=== PATIENT | male | born 1940 | race Caucasian/White ===

== ENCOUNTER 2017-10-09 15:24 | Inpatient (IN) ==
--- NOTE | 2017-10-09 16:13 | Emergency Department Note ---
Disposition Clinical Impression: Sepsis Disposition: Admitted As Inpatient Condition: Fair SOB HPI - General Chief Complaint: ED Shortness of Breath/Dyspnea Stated Complaint: shortness of breath Time Seen by Provider: 10/09/17 15:50 Source: family Mode of arrival: wheelchair Limitations: no limitations Nursing Notes Reviewed: Yes Vital Signs Reviewed: Yes - History of Present Illness Patient began shaking today feels very cold. He was recently in the hospital with a heart attack and the family is thinking he may have pneumonia. He is coughing a little bit of whitish phlegm. He denies any shortness of breath. Pt Subjective Complaint: shortness of breath Onset (ago): Just [employer] Context: recent illness Severity: moderate Consistency/Duration: intermittent Improves with: nothing Worsens with: nothing Associated symptoms: Reports: cough, sputum production (clear), nausea/vomiting (times one). Denies: chest pain, pain with inspiration, fever, wheezing Treatment prior to arrival: none Cough Description: Involuntary, Productive Cough Frequency: Intermittent Sputum production: Yes Sputum Amount: Scant Sputum Color: White - Related Data Home Medications Medication Instructions Recorded Confirmed Cholecalciferol (D-3) [Vitamin D] 2,000 unit PO HS 08/11/17 10/09/17 Famotidine [Pepcid] 20 mg PO HS 08/11/17 10/09/17 Metoprolol [Lopressor] 100 mg PO BID 08/11/17 10/09/17 Montelukast [Singulair] 10 mg PO HS 08/11/17 10/09/17 traZODone [TraZODone] 50 mg PO HS 09/28/17 10/09/17 Previous Rx's Medication Instructions Recorded Aspirin 81 mg PO DAILY #30 tab.chew 09/30/17 Atorvastatin [Lipitor] 80 mg PO HS #30 tablet 09/30/17 Losartan [Cozaar] 50 mg PO DAILY #30 tablet 09/30/17 Rivaroxaban [Xarelto] 20 mg PO 1700 #30 tablet 09/30/17 Ticagrelor [Brilinta] 90 mg PO BID #60 tablet 09/30/17 Allergies Allergy/AdvReac Type Severity Reaction Status Date / Time No Known Allergies Allergy Verified 08/11/17 07:11 All systems ED: reviewed and negative except as stated. Review of Systems: As Per HPI Constitutional: Denies: fever, chills, weakness, weight change Eyes: Denies: eye pain, eye discharge, vision change ENT ED: Denies: ear pain, throat pain, dental pain, hearing loss, epistaxis, congestion, dysphagia Cardiovascular: Denies: chest pain, palpitations, dyspnea on exertion, edema, syncope Respiratory: Reports: cough, dyspnea. Denies: wheezes, hemoptysis, stridor Gastrointestinal: Denies: abdominal pain, nausea, vomiting, diarrhea, constipation, hematemesis, melena, hematochezia Genitourinary: Denies: urgency, dysuria, frequency, hematuria Musculoskeletal: Denies: back pain, neck pain, arthralgia, myalgia Integumentary: Denies: rash, abrasion, lesions Neurological: Denies: headache, weakness, numbness, paresthesias, confusion, abnormal gait, vertigo Endocrine: Denies: fatigue Hematological/Lymphatic: Denies: easy bleeding, easy bruising Allergic/Immunologic: Denies: facial swelling, urticaria Past Medical History - Past Medical History Attestation: Yes The following information was validated with the patient. Source: patient Medical history: Reports: asthma, CHF, COPD, coronary artery disease, hyperlipidemia, hypertension, myocardial infarction, other Surgical history: Reports: angioplasty/stent, coronary bypass (CABG), LE stent(s ), LE vascular intervention, pacemaker/AICD Psychiatric history: Reports: no psych history - Social History Smoking Status: Former smoker Smokeless Tobacco Status: No Alcohol use: Reports: none Drug use: Reports: none Physical Exam - General Limitations: no limitations General appearance: alert - Head Head exam: atraumatic, normocephalic, normal inspection - Eye Eye exam: Present: normal appearance, PERRL, EOMI - ENT ENT exam: normal exam, normal oropharynx, mucous membranes moist - Neck Neck exam: Present: normal inspection, full ROM, trachea midline - Chest Chest inspection: Present: normal inspection, symmetric chest wall rise - Respiratory Respiratory exam: Present: normal lung sounds bilaterally - Cardiovascular Cardiovascular exam: Present: regular rate, normal rhythm, normal heart sounds - Abdominal Exam Abdominal exam: Present: soft, Non-Tender. Absent: tenderness, distention, guarding, rebound, rigidity - Back Exam Back exam: Present: normal inspection - Neurological Exam Neurological exam: Present: alert, oriented X3 - Psychiatric Psychiatric exam: Present: normal affect, normal mood - Skin Skin exam: Present: warm, dry, intact Course Vital Signs Temperature 97.7 F 10/09/17 15:25 Pulse Rate 76 10/09/17 15:25 Respiratory Rate 18 10/09/17 15:25 Blood Pressure 176/112 10/09/17 15:25 O2 Sat by Pulse Oximetry 95 10/09/17 15:25 Temperature 97.7 F 10/09/17 15:25 Pulse Rate 61 10/09/17 19:22 Respiratory Rate 18 10/09/17 19:22 Blood Pressure 115/57 10/09/17 19:22 O2 Sat by Pulse Oximetry 97 10/09/17 19:22 Oxygen Delivery Oxygen Delivery Nasal Cannula Shortness of Breath/Dyspnea - Lab Data Result diagrams: 10/09/17 15:55 10/09/17 15:55 Lab Results 10/09/17 10/09/17 10/09/17 Range/Units 15:55 15:55 15:55 WBC 9.4 (4.3-11.1) K/mcL RBC 5.59 H (4.19-5.50) M/mcL Hgb 15.9 (12.9-16.9) g/dL Hct 49.9 (37.5-50.1) % MCV 89.3 (83.0-100.0) fL MCH 28.4 (28.0-33.3) pg MCHC 31.9 (31.6-35.5) g/dL RDW 14.7 H (11.5-14.5) % Plt Count 220 (140-400) K/mcL MPV 11.8 (9.4-12.4) fL Immature Gran % 0.4 (0-4) % Seg Neutrophils % 66.5 % Lymphocytes % 21.0 % Monocytes % 8.1 % Eosinophils % 3.5 % Basophils % 0.5 % Neutrophils # 6.2 (1.6-8.9) K/mcL Lymphocytes # 2.0 (0.6-4.6) K/mcL Monocytes # 0.8 (0.0-1.3) K/mcL Eosinophils # 0.3 (0.0-0.6) K/mcL Basophils # 0.1 (0.0-0.2) K/mcL Sodium 142 (136-145) mEq/L Potassium 4.2 (3.5-4.5) mEq/L Chloride 105 (98-109) mEq/L Carbon Dioxide 23 (19-29) mEq/L BUN 23 (8-26) mg/dL Creatinine 1.29 H (0.72-1.25) mg/dL Est GFR ( Amer) > 60 (> 60) Est GFR (Non-Af Amer) 54 L (> 60) BUN/Creatinine Ratio 18 (6-26) Glucose 122 H (70-99) mg/dL Calculated Osmolality 299 (280-300) Lactic Acid 4.3 H* (0.5-2.2) mmol/L Calcium 10.4 (8.6-10.8) mg/dL Total Bilirubin 1.3 H (0.2-1.2) mg/dL AST 21 (5-34) Units/L ALT 16 (0-55) Units/L Alkaline Phosphatase 117 (38-126) Units/L Troponin I (0-0.03) ng/mL Serum Total Protein 8.0 (6.0-8.3) g/dL Albumin 3.8 (3.5-5.0) g/dL Globulin 4.2 H (2.4-3.5) g/dL Albumin/Globulin Ratio 0.9 L (1.1-2.2) Urine Color (Yellow) Urine Clarity (Clear) Urine pH (5.0-8.0) pH Units Ur Specific [place] (1.010-1.025) Urine Protein (Neg-Trace) mg/dL Urine Glucose (UA) (Normal) mg/dL Urine Ketones (Negative) mg/dL Urine Blood (Negative) Urine Nitrite (Negative) Urine Bilirubin (Negative) Urine Urobilinogen (Normal) mg/dL Ur Leukocyte Esterase (Negative) Urine Microscopic RBC (0-3) per hpf Urine Microscopic WBC (0-3) per hpf Ur Squamous Epith Cells (None-Few) per lpf Urine Mucus (Few) Ur Culture Indicated? (NO) 10/09/17 10/09/17 Range/Units 16:33 17:35 WBC (4.3-11.1) K/mcL RBC (4.19-5.50) M/mcL Hgb (12.9-16.9) g/dL Hct (37.5-50.1) % MCV (83.0-100.0) fL MCH (28.0-33.3) pg MCHC (31.6-35.5) g/dL RDW (11.5-14.5) % Plt Count (140-400) K/mcL MPV (9.4-12.4) fL Immature Gran % (0-4) % Seg Neutrophils % % Lymphocytes % % Monocytes % % Eosinophils % % Basophils % % Neutrophils # (1.6-8.9) K/mcL Lymphocytes # (0.6-4.6) K/mcL Monocytes # (0.0-1.3) K/mcL Eosinophils # (0.0-0.6) K/mcL Basophils # (0.0-0.2) K/mcL Sodium (136-145) mEq/L Potassium (3.5-4.5) mEq/L Chloride (98-109) mEq/L Carbon Dioxide (19-29) mEq/L BUN (8-26) mg/dL Creatinine (0.72-1.25) mg/dL Est GFR ( Amer) (> 60) Est GFR (Non-Af Amer) (> 60) BUN/Creatinine Ratio (6-26) Glucose (70-99) mg/dL Calculated Osmolality (280-300) Lactic Acid (0.5-2.2) mmol/L Calcium (8.6-10.8) mg/dL Total Bilirubin (0.2-1.2) mg/dL AST (5-34) Units/L ALT (0-55) Units/L Alkaline Phosphatase (38-126) Units/L Troponin I 0.01 (0-0.03) ng/mL Serum Total Protein (6.0-8.3) g/dL Albumin (3.5-5.0) g/dL Globulin (2.4-3.5) g/dL Albumin/Globulin Ratio (1.1-2.2) Urine Color Yellow (Yellow) Urine Clarity Clear (Clear) Urine pH 5.0 (5.0-8.0) pH Units Ur Specific [place] 1.025 (1.010-1.025) Urine Protein Negative (Neg-Trace) mg/dL Urine Glucose (UA) Normal (Normal) mg/dL Urine Ketones Negative (Negative) mg/dL Urine Blood Small H (Negative) Urine Nitrite Negative (Negative) Urine Bilirubin Negative (Negative) Urine Urobilinogen Normal (Normal) mg/dL Ur Leukocyte Esterase Negative (Negative) Urine Microscopic RBC 3-5 H (0-3) per hpf Urine Microscopic WBC 0-3 (0-3) per hpf Ur Squamous Epith Cells Few (None-Few) per lpf Urine Mucus Few (Few) Ur Culture Indicated? NO (NO)
[2017-10-09 16:24] LABS: Basophils # 0.1 K/mcL (0.0-0.2); Basophils % 0.5 %; Eosinophils # 0.3 K/mcL (0.0-0.6); Eosinophils % 3.5 %; Hematocrit 49.9 % (37.5-50.1); Hemoglobin 15.9 g/dL (12.9-16.9); Immature Granulocytes % 0.4 % (0-4); Mean Corpuscular HGB Conc 31.9 g/dL (31.6-35.5); Mean Corpuscular Hemoglobin 28.4 pg (28.0-33.3); Mean Corpuscular Volume 89.3 fL (83.0-100.0); Mean Platelet Volume 11.8 fL (9.4-12.4); Monocytes # 0.8 K/mcL (0.0-1.3); Monocytes % 8.1 %; Neutrophils # 6.2 K/mcL (1.6-8.9); Platelet Count 220 K/mcL (140-400); Red Blood Count 5.59 M/mcL (4.19-5.50); Red Cell Distribution Width 14.7 % (11.5-14.5); Segmented Neutrophils % 66.5 %
[2017-10-09 16:37] LABS: Alanine Aminotransferase 16 Units/L (0-55); Albumin 3.8 g/dL (3.5-5.0); Albumin/Globulin Ratio 0.9 (1.1-2.2); Alkaline Phosphatase 117 Units/L (38-126); Aspartate Amino Transferase 21 Units/L (5-34); BUN/Creatinine Ratio 18 (6-26); Bilirubin,Total 1.3 mg/dL (0.2-1.2); Blood Urea Nitrogen 23 mg/dL (8-26); Calcium 10.4 mg/dL (8.6-10.8); Carbon Dioxide 23 mEq/L (19-29); Chloride 105 mEq/L (98-109); Globulin 4.2 g/dL (2.4-3.5); Glucose 122 mg/dL (70-99); Osmolality,Calculated 299 (280-300); Potassium 4.2 mEq/L (3.5-4.5); Sodium 142 mEq/L (136-145); eGFR For African Americans > 60 (> 60); eGFR For Non-African Americans 54 (> 60)
[2017-10-09] MEDS: 0.9 % Sodium Chloride 1,000 ML IVC SCH ×6 (16:37→22:31)
[2017-10-09 17:44] LABS: Bilirubin,Urine Negative (Negative); Blood,Urine Small (Negative); Clarity,Urine Clear (Clear); Color,Urine Yellow (Yellow); Glucose,Urine (UA) Normal (Normal); Ketones,Urine Negative (Negative); Leukocyte Esterase,Urine Negative (Negative); Nitrite,Urine Negative (Negative); Protein,Urine Negative (Neg-Trace); Specific Gravity,Urine 1.025 (1.010-1.025); Urobilinogen,Urine Normal (Normal)
[2017-10-09 18:17] LABS: Mucus,Urine Few (Few); Squamous Epithelial Cell,Urine Few per lpf (None-Few); WBC,Urine 0-3 per hpf (0-3)
[2017-10-09] MEDS ORDERED: Levofloxacin 500 MG/100 ML 500 MG/100 ML BAG IVPB ONE (18:21)
[2017-10-09] MEDS ORDERED: Ondansetron 4 MG/2 ML VIAL IVP PRN (19:28)
[2017-10-09] MEDS ORDERED: Naloxone 0.4 MG/ML INJ IVP PRN (19:28)
[2017-10-09] MEDS: Albuterol 2.5 MG/3 ML NEBULIZER IH PRN (21:55)
[2017-10-09] MEDS: *HR* Ticagrelor 90 MG TABLET PO SCH (22:32)
[2017-10-09] MEDS: Famotidine 20 MG TABLET PO SCH (22:33)
[2017-10-09] MEDS: traZODone 50 MG TABLET PO SCH (22:33)
[2017-10-10] MEDS: 0.9 % Sodium Chloride 1,000 ML IVC SCH ×5 (00:28→02:59)
[2017-10-10] MEDS: Cholecalciferol (D-3) 1,000 UNIT TABLET PO SCH ×2 (00:28→20:33)
[2017-10-10 05:20] LABS: Basophils % 0.2 %; Eosinophils % 0.1 %; Hematocrit 37.2 % (37.5-50.1); Immature Granulocytes % 0.6 % (0-4); Lymphocytes # 1.7 K/mcL (0.6-4.6); Lymphocytes % 12.9 %; Mean Corpuscular HGB Conc 32.3 g/dL (31.6-35.5); Mean Corpuscular Hemoglobin 28.4 pg (28.0-33.3); Mean Corpuscular Volume 87.9 fL (83.0-100.0); Mean Platelet Volume 11.1 fL (9.4-12.4); Monocytes # 1.2 K/mcL (0.0-1.3); Monocytes % 9.4 %; Neutrophils # 9.8 K/mcL (1.6-8.9); Platelet Count 145 K/mcL (140-400); Red Blood Count 4.23 M/mcL (4.19-5.50); Segmented Neutrophils % 76.8 %
[2017-10-10 05:39] LABS: BUN/Creatinine Ratio 25 (6-26); Blood Urea Nitrogen 21 mg/dL (8-26); Calcium 8.6 mg/dL (8.6-10.8); Carbon Dioxide 18 mEq/L (19-29); Chloride 112 mEq/L (98-109); Glucose 110 mg/dL (70-99); Osmolality,Calculated 292 (280-300); Sodium 139 mEq/L (136-145); eGFR For African Americans > 60 (> 60); eGFR For Non-African Americans > 60 (> 60)
[2017-10-10] MEDS: *HR* Ticagrelor 90 MG TABLET PO SCH ×2 (08:52→20:34)
[2017-10-10] MEDS: Aspirin 81 MG TAB.CHEW PO SCH (08:53)
--- NOTE | 2017-10-10 09:44 | Internal Med History&Physical ---
Date of Encounter: 10/10/17 Time of Encounter: 09:15 Assessment and Plan (1) Chills Current visit: Yes Status: Acute Suspect viral infection. Will order CT of chest to further evaluate. He was given Levaquin empirically in emergency room. (2) CHF (congestive heart failure) Current visit: No Status: Chronic Continue Toprol, Cozaar, and antiplatelet agents. Qualifiers: Congestive heart failure type: unspecified congestive heart failure type Congestive heart failure chronicity: chronic Qualified Code(s): I50.9 - Heart failure, unspecified (3) Paroxysmal atrial fibrillation Current visit: No Status: Chronic Continue Xarelto Internal Medicine - H&P: HPI Chief complaint: Dyspnea Admitted From: Home Plans for Post Hospital Care: Home History of present illness: Mr. Kowalski is a 77 year old male who came to the emergency room stating he had 7-10 day history of increasing dyspnea with chills. He had an episode of vomiting the morning of admission. He denies significant abdominal pain or cough. He was evaluated in emergency room and found to have slightly elevated lactic acidosis and mild azotemia present. He was admitted to [facility] floor for ongoing care needs. He states he feels slightly improved at the present time. His respiratory history is significant for having smoked from age [age] up to 1 pack per day. He has not had PFTs and does not use home oxygen. Past Med Surg Social Fam HX - Past Medical History Medical history: asthma, CHF, COPD, coronary artery disease, hyperlipidemia, hypertension, myocardial infarction, other Psychiatric history: no psych history - Past Surgical History Surgical History: angioplasty/stent, coronary bypass (CABG), LE stent(s), LE vascular intervention, pacemaker/AICD - Social History Smoking Status: Former smoker Smokeless Tobacco Status: No Alcohol use: none Drug use: none - Family History Mother Adopted: No Family Member Ethnicity: Non- Hx Family Cardiac Disorders: Yes Hx Family Respiratory Disorders: Yes Internal Medicine - H&P: Meds Cholecalciferol (D-3) [Vitamin D] 2,000 unit PO HS 08/11/17 [History] Famotidine [Pepcid] 20 mg PO HS 08/11/17 [History] Metoprolol [Lopressor] 100 mg PO BID 08/11/17 [History] Montelukast [Singulair] 10 mg PO HS 08/11/17 [History] traZODone [TraZODone] 50 mg PO HS 09/28/17 [History] Aspirin 81 mg PO DAILY #30 tab.chew 09/30/17 [Rx] Atorvastatin [Lipitor] 80 mg PO HS #30 tablet 09/30/17 [Rx] Losartan [Cozaar] 50 mg PO DAILY #30 tablet 09/30/17 [Rx] Rivaroxaban [Xarelto] 20 mg PO 1700 #30 tablet 09/30/17 [Rx] Ticagrelor [Brilinta] 90 mg PO BID #60 tablet 09/30/17 [Rx] 3 Allergy/AdvReac Type Severity Reaction Status Date / Time No Known Allergies Allergy Verified 08/11/17 07:11 All Systems PM: A 10-system review of systems was performed and is negative for pertinent findings except as documented above in the HPI. Review of systems: Gen.: His weight has been stable the past few months Cardiovascular: He has history of hypertension and has had several MIs. He had 7 stents placed beginning 1998 prior to undergoing two-vessel CABG surgery August 2016. A porcine mitral valve replacement was done at that surgery also. An 8th stent was placed 09/29/2017. He has history of paroxysmal atrial fibrillation and takes Xarelto. He has CHF with echocardiogram done 09/29/2017 showing LVEF of 25-30% with severe LV systolic dysfunction. There was indeterminate diastolic function. There was LAE at 4.30 cm. The left ventricular end-diastolic diameter was significantly elevated to 6.80 cm. The interventricular septum and posterior wall thickness measurements were normal. He denies DVT or pulmonary embolus. He has known PAD and has had aortobifemoral bypass several years ago. On 08/11/2017 he had right common femoral artery endarterectomy with Hemashield patch angioplasty, right popliteal and tibioperoneal trunk endarterectomy with pericardial patch angioplasty, right common femoral to tibioperoneal trunk artery bypass with graft placement, and right posterior tibial artery thrombectomy. He had an ICD/ pacemaker placed originally in 1998 with recent replacement unit. Respiratory: As per history of present illness GI: Denies disorders of his liver gallbladder or exocrine pancreas : He denies hematuria dysuria or kidney stones Neurologic: He denies large distribution strokes or seizures Endocrine: He has hyperlipidemia but denies diabetes or thyroid disease Hematology/oncology: He denies blood disorders cancers or anemia Psychiatric: He denies anxiety depression or other mental health issues [place] skeletal: He denies arthritis gout or other bone joint or muscle disorders. - Constitutional Vitals: Temp Pulse Resp BP Pulse Ox 97.6 F 66 20 102/55 98 10/10/17 06:00 10/10/17 06:00 10/10/17 06:00 10/10/17 06:00 10/10/17 06:00 Exam: Gen.: He is a well-developed well-nourished male lying in bed who appears in no acute distress HEENT: Head is atraumatic and normocephalic. Eyes: EOMI. There is no scleral icterus. Mouth: Mucosa is moist. Neck: Supple and nontender. There is no thyromegaly or adenopathy noted. Heart: Regular without murmurs gallops or ectopics Lungs: No wheezes or crackles are heard. Abdomen: Soft and nontender. No masses or guarding are noted. Extremities: There is no cyanosis edema or clubbing noted. Dorsalis pedis and posterior tibial pulses are trace to 1+ palpable bilaterally. He has healing surgical incisions on the right inner calf area from recent vascular surgery. He has minimal DJD changes of his hands. Neurologic: Mental status: He is talkative and seems to be a reliable historian. Cranial nerves: Smile is symmetric. Forehead wrinkles bilaterally. Tongue protrudes midline. EOMI. He is hard of hearing. Motor: There is no pronator drift. Cerebellar: Finger to nose is intact bilaterally. Skin: Warm and dry Internal Med - H&P Results - Labs CBC & Chem 7: 10/10/17 04:55 10/10/17 04:55 Labs: Short CBC 10/10/17 Range/Units 04:55 WBC 12.8 H (4.3-11.1) K/mcL Hgb 12.0 L D (12.9-16.9) g/dL Hct 37.2 L (37.5-50.1) % Plt Count 145 (140-400) K/mcL Neutrophils # 9.8 H (1.6-8.9) K/mcL BMP 10/10/17 04:55 Sodium 139 Potassium 4.0 Chloride 112 H Carbon Dioxide 18 L BUN 21 Creatinine 0.83 Glucose 110 H Calcium 8.6 D
[2017-10-10] MEDS: Doxycycline 100 MG in 0.9 % Sodium Chloride Mini Bag 100 ML IVPB SCH (16:36)
[2017-10-10] MEDS ORDERED: *HR* Rivaroxaban 10 MG TABLET PO SCH (17:00)
[2017-10-10] MEDS: Albuterol 2.5 MG/3 ML NEBULIZER IH PRN ×2 (17:29→22:37)
[2017-10-10] MEDS: Piperacillin/Tazobactam 3.375 GM in D5% in Water (Mini-Bag+) 100 ML IVPB SCH (18:03)
[2017-10-10] MEDS: Lactobacillus 1 EACH CAP.SPRINK PO SCH (20:29)
[2017-10-10] MEDS: Famotidine 20 MG TABLET PO SCH (20:32)
[2017-10-10] MEDS: traZODone 50 MG TABLET PO SCH (20:34)
[2017-10-11] MEDS: Piperacillin/Tazobactam 3.375 GM in D5% in Water (Mini-Bag+) 100 ML IVPB SCH ×3 (02:36→17:29)
[2017-10-11 05:23] LABS: Basophils % 0.5 %; Eosinophils # 0.1 K/mcL (0.0-0.6); Eosinophils % 1.4 %; Hematocrit 35.6 % (37.5-50.1); Hemoglobin 11.5 g/dL (12.9-16.9); Immature Granulocytes % 0.5 % (0-4); Lymphocytes # 1.6 K/mcL (0.6-4.6); Lymphocytes % 19.8 %; Mean Corpuscular HGB Conc 32.3 g/dL (31.6-35.5); Mean Corpuscular Hemoglobin 28.6 pg (28.0-33.3); Mean Corpuscular Volume 88.6 fL (83.0-100.0); Mean Platelet Volume 11.7 fL (9.4-12.4); Monocytes # 0.8 K/mcL (0.0-1.3); Monocytes % 9.5 %; Neutrophils # 5.4 K/mcL (1.6-8.9); Platelet Count 141 K/mcL (140-400); Red Blood Count 4.02 M/mcL (4.19-5.50); Red Cell Distribution Width 14.9 % (11.5-14.5); Segmented Neutrophils % 68.3 %
[2017-10-11 05:42] LABS: BUN/Creatinine Ratio 23 (6-26); Blood Urea Nitrogen 18 mg/dL (8-26); Carbon Dioxide 17 mEq/L (19-29); Chloride 113 mEq/L (98-109); Glucose 91 mg/dL (70-99); Osmolality,Calculated 289 (280-300); Potassium 3.5 mEq/L (3.5-4.5); Sodium 139 mEq/L (136-145); eGFR For African Americans > 60 (> 60); eGFR For Non-African Americans > 60 (> 60)
[2017-10-11] MEDS: Albuterol 2.5 MG/3 ML NEBULIZER IH PRN ×3 (07:36→17:56)
[2017-10-11] MEDS: Doxycycline 100 MG in 0.9 % Sodium Chloride Mini Bag 100 ML IVPB SCH ×2 (08:33→21:10)
[2017-10-11] MEDS: Aspirin 81 MG TAB.CHEW PO SCH (08:34)
[2017-10-11] MEDS: Lactobacillus 1 EACH CAP.SPRINK PO SCH ×2 (08:34→21:10)
[2017-10-11] MEDS: *HR* Ticagrelor 90 MG TABLET PO SCH (08:36)
--- NOTE | 2017-10-11 15:09 | Internal Med Progress Note ---
Date of Encounter: 10/11/17 Time of Encounter: 15:00 - Assessment and plan (1) Pneumonia Current Visit: Yes Status: Acute Assessment and plan: October 11. Chest CT showed bilateral nodular pneumonia with possible cavitary areas. Continue doxycycline and Zosyn with Lactobacillus. Anticipate discharge home tomorrow if stable. Qualifiers: Pneumonia type: due to unspecified organism Laterality: bilateral Lung location: lower lobe of lung Qualified Code(s): J18.9 - Pneumonia, unspecified organism (2) CHF (congestive heart failure) Current Visit: No Status: Chronic Assessment and plan: October 11. Continue Toprol, Cozaar, and other medications as at present. Qualifiers: Congestive heart failure type: unspecified congestive heart failure type Congestive heart failure chronicity: chronic Qualified Code(s): I50.9 - Heart failure, unspecified (3) Paroxysmal atrial fibrillation Current Visit: No Status: Chronic Assessment and plan: October 11. We will hold Xarelto today because of epistaxis. - Subjective Interval history: October 11. He has no new complaints and states he feels significantly better. He has had epistaxis since I saw him yesterday. - Constitutional Vitals: Temp Pulse Resp BP Pulse Ox 97.5 F L 62 15 119/62 94 10/11/17 10:45 10/11/17 10:45 10/11/17 11:23 10/11/17 10:45 10/11/17 11:23 Exam: He is resting comfortably in bed at present time and appears in no acute distress. His affect is bright and cheerful. I reviewed his medications and lab results. Internal Medicine: Result - Labs CBC & Chem 7: 10/11/17 05:05 10/11/17 05:05 Labs: Short CBC 10/11/17 Range/Units 05:05 WBC 7.9 (4.3-11.1) K/mcL Hgb 11.5 L (12.9-16.9) g/dL Hct 35.6 L (37.5-50.1) % Plt Count 141 (140-400) K/mcL Neutrophils # 5.4 (1.6-8.9) K/mcL BMP 10/11/17 05:05 Sodium 139 Potassium 3.5 Chloride 113 H Carbon Dioxide 17 L BUN 18 Creatinine 0.77 Glucose 91 Calcium 9.0 - Impressions Impressions Chest CT 10/10/17 10:08 IMPRESSION: 1. Nonspecific reticulonodular opacities within the bilateral lower lobes, with a somewhat cavitary appearance, most consistent with multifocal pneumonia. However, suggest appropriate clinical treatment, and short-term chest CT follow-up in 6-8 weeks, to ensure resolution of these opacities. 2. Mild mediastinal lymphadenopathy, most likely benign and reactive in etiology. This should also be followed to ensure resolution. D/ / 10/10/2017 11:29:15 Donny Shen MD / peggy Interpreting Provider: Donny Shen MD Consult Discharge Plan - Plan Referrals: Galindo Hopkins, [Primary Care Provider] - 1 week
[2017-10-11] MEDS: Famotidine 20 MG TABLET PO SCH (21:10)
[2017-10-11] MEDS: traZODone 50 MG TABLET PO SCH (21:10)
[2017-10-11] MEDS: Cholecalciferol (D-3) 1,000 UNIT TABLET PO SCH (21:10)
[2017-10-12] MEDS: Piperacillin/Tazobactam 3.375 GM in D5% in Water (Mini-Bag+) 100 ML IVPB SCH (02:15)
[2017-10-12 06:04] LABS: Basophils % 0.3 %; Eosinophils # 0.2 K/mcL (0.0-0.6); Eosinophils % 3.1 %; Hematocrit 35.7 % (37.5-50.1); Hemoglobin 11.7 g/dL (12.9-16.9); Immature Granulocytes % 0.3 % (0-4); Lymphocytes # 1.6 K/mcL (0.6-4.6); Lymphocytes % 25.6 %; Mean Corpuscular HGB Conc 32.8 g/dL (31.6-35.5); Mean Corpuscular Hemoglobin 28.6 pg (28.0-33.3); Mean Corpuscular Volume 87.3 fL (83.0-100.0); Mean Platelet Volume 11.2 fL (9.4-12.4); Monocytes # 0.5 K/mcL (0.0-1.3); Monocytes % 7.4 %; Neutrophils # 3.9 K/mcL (1.6-8.9); Platelet Count 157 K/mcL (140-400); Red Blood Count 4.09 M/mcL (4.19-5.50); Red Cell Distribution Width 14.9 % (11.5-14.5); Segmented Neutrophils % 63.3 %
[2017-10-12 06:29] LABS: BUN/Creatinine Ratio 17 (6-26); Blood Urea Nitrogen 14 mg/dL (8-26); Calcium 9.3 mg/dL (8.6-10.8); Carbon Dioxide 20 mEq/L (19-29); Chloride 112 mEq/L (98-109); Glucose 94 mg/dL (70-99); Osmolality,Calculated 292 (280-300); Potassium 3.5 mEq/L (3.5-4.5); Sodium 141 mEq/L (136-145); eGFR For African Americans > 60 (> 60); eGFR For Non-African Americans > 60 (> 60)
[2017-10-12 06:59] VITALS: BP 142/67
[2017-10-12] MEDS: 0.9 % Sodium Chloride 1,000 ML IVC SCH ×6 (07:27→07:32)
[2017-10-12] MEDS: Albuterol 2.5 MG/3 ML NEBULIZER IH PRN (08:32)
[2017-10-12] MEDS: Doxycycline 100 MG in 0.9 % Sodium Chloride Mini Bag 100 ML IVPB SCH (09:01)
[2017-10-12] MEDS: Lactobacillus 1 EACH CAP.SPRINK PO SCH (09:03)
[2017-10-12] MEDS: Aspirin 81 MG TAB.CHEW PO SCH (09:03)
--- NOTE | 2017-10-12 10:17 | Discharge Summary ---
Date of Encounter: 10/12/17 Time of Encounter: 10:05 - Discharge Diagnosis (1) Pneumonia Priority: Primary Status: Acute Qualifiers: Pneumonia type: due to unspecified organism Laterality: bilateral Lung location: lower lobe of lung Qualified Code(s): J18.9 - Pneumonia, unspecified organism (2) CHF (congestive heart failure) Priority: Secondary Status: Chronic Qualifiers: Congestive heart failure type: unspecified congestive heart failure type Congestive heart failure chronicity: chronic Qualified Code(s): I50.9 - Heart failure, unspecified (3) Paroxysmal atrial fibrillation Priority: Secondary Status: Chronic - Discharge Medications Prescriptions: Amoxicillin/Clavulanate [Augmentin] 875 mg PO BIDWM #10 tablet Doxycycline 100 mg PO BID #10 capsule Lactobacillus [Culturelle] 1 each PO BID #10 cap.sprink Home Medications: Cholecalciferol (D-3) [Vitamin D] 2,000 unit PO DAILY 08/11/17 [History] Famotidine [Pepcid] 20 mg PO DAILY 08/11/17 [History] Metoprolol [Lopressor] 100 mg PO BID 08/11/17 [History] Montelukast [Singulair] 10 mg PO HS 08/11/17 [History] Aspirin 81 mg PO DAILY #30 tab.chew 09/30/17 [Rx] Losartan [Cozaar] 50 mg PO DAILY #30 tablet 09/30/17 [Rx] Ticagrelor [Brilinta] 90 mg PO BID #60 tablet 09/30/17 [Rx] Amoxicillin/Clavulanate [Augmentin] 875 mg PO BIDWM #10 tablet 10/12/17 [Rx] Atorvastatin [Lipitor] 20 mg PO HS 10/12/17 [History] Doxycycline 100 mg PO BID #10 capsule 10/12/17 [Rx] Lactobacillus [Culturelle] 1 each PO BID #10 cap.sprink 10/12/17 [Rx] Rivaroxaban [Xarelto] 15 mg PO 1700 10/12/17 [History] Allergies/Adverse Reactions: 3 Allergy/AdvReac Type Severity Reaction Status Date / Time No Known Allergies Allergy Verified 08/11/17 07:11 Date of admission: 10/11/17 15:11 Primary care physician: Galindo Hopkins DO - Patient Status Disposition: Home, Self-Care Condition: Fair Functional capacity at discharge: independent ambulation Overall status at discharge: patient is progressing back to baseline - Discharge Instructions Follow Up With: Galindo Hopkins DO [Primary Care Provider] - 1 week - Diet and Activity Activity: resume usual activities as tolerated Diet: advance to your usual diet Hospital course: Mr. Kowalski is a 77 year old male who came to the emergency room stating he had 7-10 day history of increasing dyspnea with chills. He had an episode of vomiting the morning of admission. He denies significant abdominal pain or cough. He was evaluated in emergency room and found to have slightly elevated lactic acidosis and mild azotemia present. He was [facility] to [facility] for ongoing care needs. Initial orders were written by the emergency room physician. I saw him on October 10 and performed a history and physical. Chest CT was ordered to further evaluate. He had nonspecific reticulonodular opacities in the lower lobes bilaterally with a somewhat cavitary appearance most consistent with multifocal pneumonia. Recommendation was for short-term chest CT follow-up in 6 -8 weeks to ensure resolution of the opacities. His PCP Dr. Hopkins can order repeat CT. He was given IV doxycycline and Zosyn. He had good clinical response and had no further chills. He will be discharged home with 5 additional days of antibiotic and probiotic. He will follow with his PCP Dr. Hopkins within 1 week. Room air oximetry showed satisfactory oxygenation on 6 minute walk without need for supplemental oxygen. - Time Spent with Patient Total time spent providing and/or coordinating discharge services: - Constitutional Vitals: Temp Pulse Resp BP Pulse Ox 98.3 F 70 14 142/67 96 10/12/17 06:58 10/12/17 06:58 10/12/17 08:32 10/12/17 06:58 10/12/17 08:32
[2017-10-12 12:21] LABS: % Iron Saturation 14 % (20-55); Iron 31 mcg/dL (65-175); Transferrin 160 mg/dL (174-364)
[2017-10-12 12:46] LABS: Ferritin 196 ng/ml (22-275)
[2017-10-12 12:58] LABS: Folate 11.6 ng/mL (7.0-31.4)
--- NOTE | 2017-10-12 15:01 | Electrocardiograph Report ---
[place] [id number] Test Date: 2017-10-09 Pat Name: Leo Kowalski Department: [id number] Room: [facility] Gender: M [employer] Work[employer]: [id number] : 1940 Requested By: Wilmar Call Order Number: [id number] Reading MD: Roni Heredia MD Measurements Intervals [place] Rate: 75 P: 98 [place]: 322 QRS: 0 QRSD: 136 T: 75 QT: 390 QTc: 419 Interpretive Statements ELECTRONIC ATRIAL PACEMAKER/SINUS RHYTHM PVCS INFERIOR PR, PROBABLY OLD Electronically Signed On 10-12-2017 14:59:27 EST by Roni Heredia MD
== END 2017-10-12 11:47 | disposition home or self-care (01) | DRG 190 ==
LOC: EMEROOPIK 15:24 → INPPIK 15:24
PROVIDERS: ADMIT Internal Medicine; ATTEND Internal Medicine

== ENCOUNTER 2019-01-02 10:11 | Observation (INO) ==
--- NOTE | 2019-01-02 10:28 | Emergency Department Note ---
Disposition Clinical Impression: Hypotension, Syncope and collapse Disposition: Admitted As Inpatient Condition: Fair Referrals: Galindo Hopkins DO [Primary Care Provider] - Forms: ED Satisfaction Letter Time of Disposition: 12:44 Weakness HPI - General Chief complaint: ED Weakness Stated complaint: fall at home, low bp Time Seen by Provider: 01/02/19 10:20 Source: patient, family Mode of arrival: wheelchair Limitations: no limitations Nursing Notes Reviewed: Yes Vital Signs Reviewed: Yes - History of Present Illness HPI Narrative: 78-year-old male who recently had a ventricular pacemaker placed who had a recent change in his medications by having it lowered presents to the emergency room after having a near-syncopal episode at home patient has chronic neck and back pain 4-5 out of 10 he denies any blurred vision double vision loss vision he's been weak tired has no energy denies any chest pain or chest pressure denies any cough hemoptysis or sputum production. Denies any diarrhea melena hematochezia hematemesis numbness tingling weakness. Patient states I'm just tired and all have any energy he is feeling or can get up and get about is otherwise reviewed and are otherwise negative Pt Subjective Complaint: generalized weakness/fatigue Onset (ago): Just [employer]ICIAN Duration: intermittent Location: generalized Pain Severity: moderate Pain Scale: 4 (Chronic no new pain) Improves with: none Worsens with: medication Context: other (Recent change in medication actually decreasing his dose of metoprolol since recent pacemaker placement) Associated symptoms: Reports: syncope (near). Denies: chest pain, confusion, dark stools, diaphoresis, dysuria, easy bruising, fever/chills, headaches, loss of appetite, nausea/vomiting, myalgias, rash, shortness of breath - Related Data Home Medications Medication Instructions Recorded Confirmed Albuterol Sulfate [Ventolin Hfa] 90 mcg IH DAILY 03/28/18 01/02/19 Atorvastatin [Lipitor] 20 mg PO HS 03/28/18 01/02/19 Cholecalciferol (Vitamin D3) 2,000 unit PO DAILY 03/28/18 01/02/19 [Vitamin D3] Metoprolol Tartrate 50 mg PO BID 03/28/18 01/02/19 Montelukast [Singulair] 10 mg PO DAILY 03/28/18 01/02/19 Rivaroxaban [Xarelto] 15 mg PO DAILY 03/28/18 01/02/19 Previous Rx's Medication Instructions Recorded Amiodarone [Cordarone] 400 mg PO DAILY 30 Days tablet 04/02/18 Omeprazole [PriLOSEC] 20 mg PO DAILY@0630 #30 capsule. 04/02/18 Allergies Allergy/AdvReac Type Severity Reaction Status Date / Time No Known Allergies Allergy Verified 05/25/18 12:50 All systems ED: reviewed and negative except as stated. Review of Systems: As Per HPI Constitutional: Reports: weakness. Denies: fever, chills Eyes: Denies: eye pain, eye discharge ENT ED: Denies: ear pain, throat pain Cardiovascular: Denies: chest pain, palpitations, dyspnea on exertion Respiratory: Denies: cough, dyspnea, wheezes Gastrointestinal: Denies: abdominal pain, nausea, vomiting Genitourinary: Denies: urgency, dysuria, frequency Musculoskeletal: Denies: back pain, neck pain Integumentary: Denies: rash, abrasion Neurological: Reports: weakness. Denies: headache Psychiatric: Denies: anxiety Endocrine: Reports: fatigue Hematological/Lymphatic: Denies: easy bleeding, easy bruising Allergic/Immunologic: Denies: facial swelling Past Medical History - Past Medical History Attestation: Yes The following information was validated with the patient. Source: patient, old records reviewed, nursing notes reviewed Medical history: Reports: asthma, atrial fibrillation, cardiomyopathy, CHF, COPD, coronary artery disease, hyperlipidemia, hypertension, myocardial infarction, other Surgical history: Reports: angioplasty/stent, coronary bypass (CABG), LE stent(s), LE vascular intervention, pacemaker/AICD Psychiatric history: Reports: no psych history - Social History Smoking Status: Former smoker Smokeless Tobacco Status: No Alcohol use: Reports: none Drug use: Reports: none Physical Exam - General Limitations: no limitations General appearance: alert, in no apparent distress, cachectic - Head Head exam: atraumatic, normocephalic, normal inspection - Eye Eye exam: Present: normal appearance, PERRL, EOMI - ENT ENT exam: normal exam, normal oropharynx, mucous membranes moist, TM's normal bilaterally, normal external ear exam - Neck Neck exam: Present: normal inspection, full ROM, trachea midline - Chest Chest inspection: Present: normal inspection, symmetric chest wall rise, other (Sternotomy scar) - Respiratory Respiratory exam: Present: normal lung sounds bilaterally - Cardiovascular Cardiovascular exam: Present: regular rate, normal rhythm, normal heart sounds - Abdominal Exam Abdominal exam: Present: soft, Non-Tender, normal bowel sounds. Absent: mass, pulsatile mass - Expanded Upper Extremity Exam Shoulder exam: Present: normal inspection, full ROM Arm exam: Present: normal inspection, full ROM Elbow exam: Present: normal inspection, full ROM Forearm/Wrist exam: Present: normal inspection, full ROM Hand exam: Present: normal inspection, full ROM Vascular exam: Normal: capillary refill, radial pulse - Expanded Lower Extremity Exam Hip/Pelvis exam: Present: normal inspection, full ROM Upper leg exam: Present: normal inspection, full ROM Knee exam: Present: normal inspection, full ROM Lower leg exam: Present: normal inspection, full ROM Ankle exam: Present: normal inspection, full ROM Foot/toe exam: Present: normal inspection, full ROM Neurovascular/Tendon exam: Present: normal capillary refill, normal fine/light touch. Absent: motor deficit, sensory deficit, tendon deficit Gait: other Course Course Narrative: Patient was seen and evaluated IV was established laboratory data was done showing resting comfortably at this time - Reevaluation(s) Reevaluation #1: With fluid resuscitation the patient's blood pressure is now 95 over first 3 he still weak and tired this is most likely secondary to his metoprolol which he took prior to arrival to the emergency room as result will continue with his medications but hold his metoprolol was admitted to services Dr. So he has been Dr. Hopkins on Thursday perfect time for follow-up patient be transferred to [facility] he is stable at this time Vital Signs Temperature 97.7 F 01/02/19 10:14 Pulse Rate 66 01/02/19 10:14 Respiratory Rate 18 01/02/19 10:14 Blood Pressure 102/67 01/02/19 10:14 O2 Sat by Pulse Oximetry 90 01/02/19 10:14 Temperature 97.7 F 01/02/19 10:14 Pulse Rate 75 01/02/19 12:39 Respiratory Rate 16 01/02/19 12:39 Blood Pressure 95/53 01/02/19 12:39 O2 Sat by Pulse Oximetry 94 01/02/19 12:39 Oxygen Delivery Oxygen Delivery Room Air Weakness - Differential Diagnosis Differential Diagnosis: Likely: anemia, sepsis/infection, dehydration, m edication effect, metabolic - Medical Records Medical records reviewed: Yes I reviewed the patient's medical records. - Lab Data Lab results reviewed: Yes I reviewed the patient's lab results. Result diagrams: 01/02/19 11:05 01/02/19 11:05 Lab Results 01/02/19 01/02/19 01/02/19 Range/Units 11:05 11:05 11:05 WBC 9.3 (4.3-11.1) K/mcL RBC 4.79 (4.19-5.50) M/mcL Hgb 13.5 (12.9-16.9) g/dL Hct 40.8 (37.5-50.1) % MCV 85.2 (83.0-100.0) fL MCH 28.2 (28.0-33.3) pg MCHC 33.1 (31.6-35.5) g/dL RDW 16.8 H (11.5-14.5) % Plt Count 179 (140-400) K/mcL MPV 11.6 (9.4-12.4) fL Immature Gran % 1.1 (0-4) % Seg Neutrophils % 80.7 % Lymphocytes % 8.4 % Monocytes % 8.2 % Eosinophils % 1.1 % Basophils % 0.5 % Neutrophils # 7.5 (1.6-8.9) K/mcL Lymphocytes # 0.8 (0.6-4.6) K/mcL Monocytes # 0.8 (0.0-1.3) K/mcL Eosinophils # 0.1 (0.0-0.6) K/mcL Basophils # 0.1 (0.0-0.2) K/mcL PT 30.3 H (9.4-12.1) Seconds INR 2.7 APTT 35.7 (26.0-36.0) Seconds Sodium 140 (136-145) mEq/L Potassium 3.3 L (3.5-5.1) mEq/L Chloride 108 H (98-107) mEq/L Carbon Dioxide 24 (23-29) mEq/L BUN 27 H (8-23) mg/dL Creatinine 1.15 (0.70-1.30) mg/dL Est GFR ( Amer) > 60 (> 60) Est GFR (Non-Af Amer) > 60 (> 60) BUN/Creatinine Ratio 23 (6-26) Glucose 144 H (70-105) mg/dL Calculated Osmolality 298 (280-300) Calcium 8.7 (8.6-10.3) mg/dL Total Bilirubin 1.3 H (0.3-1.0) mg/dL AST 47 H (13-39) Units/L ALT 46 (7-52) Units/L Alkaline Phosphatase 60 (34-104) Units/L Troponin I < 0.03 (< 0.04) ng/mL Serum Total Protein 5.9 L (6.4-8.9) g/dL Albumin 2.3 L (3.5-5.7) g/dL Globulin 3.6 H (2.4-3.5) g/dL Albumin/Globulin Ratio 0.6 L (1.1-2.2) TSH 0.790 (0.340-5.600) mcIU/mL - Radiology Data Radiology results reviewed: Yes I reviewed the patient's radiology results. - EKG Data EKG attestation: Yes I reviewed and interpreted this EKG. EKG results narrative: Paced rate 71 OR 49 QRS 143 QT 464 axis CXC Critical Care Time Critical Care Time: Yes Total Critical Care Time: 35 Attestation: 35 minutes high probability significant life-threatening deterioration patient condition since of reportable resolved patient having persistent hypotension here in the emergency minimally responsive to fluids but is most likely secondary to fact that he taken his metoprolol prior to arrival patient will be transferred to [facility] patient's alert family and patient agreeable with treatment
[2019-01-02] MEDS ORDERED: 0.9 % Sodium Chloride 1,000 ML IVC SCH ×3 (10:30→13:14)
[2019-01-02 11:47] LABS: Basophils # 0.1 K/mcL (0.0-0.2); Basophils % 0.5 %; Eosinophils # 0.1 K/mcL (0.0-0.6); Eosinophils % 1.1 %; Hematocrit 40.8 % (37.5-50.1); Hemoglobin 13.5 g/dL (12.9-16.9); Immature Granulocytes % 1.1 % (0-4); Lymphocytes # 0.8 K/mcL (0.6-4.6); Lymphocytes % 8.4 %; Mean Corpuscular HGB Conc 33.1 g/dL (31.6-35.5); Mean Corpuscular Hemoglobin 28.2 pg (28.0-33.3); Mean Corpuscular Volume 85.2 fL (83.0-100.0); Mean Platelet Volume 11.6 fL (9.4-12.4); Monocytes # 0.8 K/mcL (0.0-1.3); Monocytes % 8.2 %; Neutrophils # 7.5 K/mcL (1.6-8.9); Platelet Count 179 K/mcL (140-400); Red Blood Count 4.79 M/mcL (4.19-5.50); Red Cell Distribution Width 16.8 % (11.5-14.5); Segmented Neutrophils % 80.7 %
[2019-01-02 11:58] LABS: INR 2.7; Prothrombin Time 30.3 Seconds (9.4-12.1)
[2019-01-02 12:01] LABS: Activated Partial Thrombo Time 35.7 Seconds (26.0-36.0)
[2019-01-02 12:06] LABS: Alanine Aminotransferase 46 Units/L (7-52); Albumin 2.3 g/dL (3.5-5.7); Albumin/Globulin Ratio 0.6 (1.1-2.2); Alkaline Phosphatase 60 Units/L (34-104); Aspartate Amino Transferase 47 Units/L (13-39); BUN/Creatinine Ratio 23 (6-26); Bilirubin,Total 1.3 mg/dL (0.3-1.0); Blood Urea Nitrogen 27 mg/dL (8-23); Calcium 8.7 mg/dL (8.6-10.3); Carbon Dioxide 24 mEq/L (23-29); Chloride 108 mEq/L (98-107); Globulin 3.6 g/dL (2.4-3.5); Glucose 144 mg/dL (70-105); Osmolality,Calculated 298 (280-300); Potassium 3.3 mEq/L (3.5-5.1); Sodium 140 mEq/L (136-145); Total Protein 5.9 g/dL (6.4-8.9); eGFR For Non-African Americans > 60 (> 60)
[2019-01-02 12:08] LABS: Troponin I < 0.03 ng/mL (< 0.04)
[2019-01-02] MEDS ORDERED: Naloxone 0.4 MG/ML INJ IVP PRN (13:14)
[2019-01-02] MEDS: 0.45 % Sodium Chloride w/KCl 20 MEQ/1,000 ML MLS IVC SCH (19:40)
[2019-01-02] MEDS: *HR* Rivaroxaban 15 MG TABLET PO SCH (20:28)
[2019-01-02 21:21] LABS: Bilirubin,Urine Small (Negative); Blood,Urine Negative (Negative); Color,Urine Yellow (Yellow); Glucose,Urine (UA) Normal (Normal); Ketones,Urine Negative (Negative); Leukocyte Esterase,Urine Negative (Negative); Nitrite,Urine Negative (Negative); PH,Urine 5.5 pH Units (5.0-8.0); Protein,Urine Trace mg/dL (Neg-Trace); Urobilinogen,Urine Normal (Normal)
[2019-01-02 21:24] LABS: Clarity,Urine Slightly Cloudy (Clear)
[2019-01-02 21:35] LABS: Hyaline Casts,Urine Few per lpf (None-Few); Mucus,Urine Moderate (Few)
[2019-01-02 21:36] LABS: RBC,Urine 0-3 per hpf (0-3); WBC,Urine 0-3 per hpf (0-3)
[2019-01-02 21:37] LABS: Calcium Oxalate Crystals,Urine Present
[2019-01-02 21:38] LABS: Amorphous Sediment,Urine Few (Few); Bacteria,Urine Moderate per hpf (None-Few); Squamous Epithelial Cell,Urine Few per lpf (None-Few)
[2019-01-02 21:39] LABS: Granular Casts,Urine Few per lpf (None Seen)
[2019-01-03] MEDS: 0.45 % Sodium Chloride w/KCl 20 MEQ/1,000 ML MLS IVC SCH ×3 (05:27→17:23)
[2019-01-03 06:20] LABS: Basophils # 0.1 K/mcL (0.0-0.2); Basophils % 0.7 %; Eosinophils # 0.2 K/mcL (0.0-0.6); Eosinophils % 2.7 %; Hematocrit 36.5 % (37.5-50.1); Hemoglobin 12.2 g/dL (12.9-16.9); Lymphocytes % 11.8 %; Mean Corpuscular HGB Conc 33.4 g/dL (31.6-35.5); Mean Corpuscular Volume 83.9 fL (83.0-100.0); Mean Platelet Volume 12.3 fL (9.4-12.4); Monocytes # 0.8 K/mcL (0.0-1.3); Monocytes % 9.9 %; Neutrophils # 5.9 K/mcL (1.6-8.9); Platelet Count 162 K/mcL (140-400); Red Blood Count 4.35 M/mcL (4.19-5.50); Red Cell Distribution Width 16.7 % (11.5-14.5); Segmented Neutrophils % 73.9 %
[2019-01-03 06:40] LABS: BUN/Creatinine Ratio 26 (6-26); Blood Urea Nitrogen 24 mg/dL (8-23); Calcium 8.3 mg/dL (8.6-10.3); Carbon Dioxide 21 mEq/L (23-29); Chloride 110 mEq/L (98-107); Glucose 104 mg/dL (70-105); Osmolality,Calculated 290 (280-300); Potassium 3.7 mEq/L (3.5-5.1); Sodium 138 mEq/L (136-145); eGFR For Non-African Americans > 60 (> 60)
[2019-01-03] MEDS ORDERED: *HR* Rivaroxaban 15 MG TABLET PO SCH (09:00)
[2019-01-03] MEDS: Cholecalciferol (D-3) 1,000 UNIT TABLET PO SCH (09:55)
[2019-01-03] MEDS: *HR* Amiodarone 200 MG TABLET PO SCH (09:56)
--- NOTE | 2019-01-03 10:52 | Internal Med History&Physical ---
Date of Encounter: 01/03/19 Time of Encounter: 10:10 Assessment and Plan (1) Multiple falls Current visit: Yes Status: Acute PT and OT evaluations will be ordered. Orthostatic vital signs will be checked. (2) Azotemia Current visit: Yes Status: Acute IV fluids have been ordered and follow-up labs will be monitored. (3) Hypokalemia Current visit: Yes Status: Acute Supplemental potassium has been ordered. (4) Anemia Current visit: Yes Status: Acute Hemoglobin has decreased to 12.2 this morning. Anemia testing will be ordered. Qualifiers: Anemia type: unspecified type Qualified Code(s): D64.9 - Anemia, unspecified (5) Paroxysmal atrial fibrillation Current visit: No Status: Chronic Continue Xarelto and amiodarone. Metoprolol will be held for now because of borderline hypotension. (6) Congestive heart failure Current visit: No Status: Chronic Toprol will be held due to borderline hypotension. Imdur will be started and BN peptide monitored. Qualifiers: Heart failure type: combined systolic and diastolic Heart failure chronicity: chronic Qualified Code(s): I50.42 - Chronic combined systolic (congestive) and diastolic (congestive) heart failure Internal Medicine - H&P: HPI Chief complaint: Fall and weakness Admitted From: Emergency Dept Plans for Post Hospital Care: Home History of present illness: Mr. Kowalski is a 78 year old male who came to emergency room after he experienced a fall while ambulating at home approximately 0830 the morning of admission. He was ambulating with his and she reports "his feet just would not move". She saw he was about to fall and attempted to stabilize him but both of them fell to the floor without injury. He was brought to emergency room and evaluated and was admitted to [facility] for ongoing care needs. She reports he has had 4 falls in the past few months. His most recent earlier fall was the previous day where he fell onto the bed without injury. He denies syncopal or near syncopal episodes. Neurologic history is negative for large distribution strokes or seizures. [place] skeletal history is negative for known arthritis gout or other bone joint or muscle disorders. Past Med Surg Social Fam HX - Past Medical History Medical history: asthma, atrial fibrillation, cardiomyopathy, CHF, COPD, cor onary artery disease, hyperlipidemia, hypertension, myocardial infarction, other Additional medical history: chronic neck and back pain Psychiatric history: no psych history - Past Surgical History Surgical History: angioplasty/stent, coronary bypass (CABG), LE stent(s), LE vascular intervention, pacemaker/AICD Additional surgical history: 9 stents last Sep 2017. abd artery repair. valve replacement in heart. bypass surgery to right leg - Social History Smoking Status: Former smoker Smokeless Tobacco Status: No Alcohol use: none Drug use: none - Family History Mother Adopted: No Family Member Ethnicity: Non- Living Status: Hx Family Cardiac Disorders: Yes Hx Family Respiratory Disorders: Yes Hx Family Neurologic Disorders: Yes (dementia) Internal Medicine - H&P: Meds Albuterol Sulfate [Ventolin Hfa] 90 mcg IH DAILY 03/28/18 [History] Atorvastatin [Lipitor] 20 mg PO HS 03/28/18 [History] Cholecalciferol (Vitamin D3) [Vitamin D3] 2,000 unit PO DAILY 03/28/18 [History] Metoprolol Tartrate 50 mg PO BID 03/28/18 [History] Montelukast [Singulair] 10 mg PO DAILY 03/28/18 [History] Rivaroxaban [Xarelto] 15 mg PO DAILY 03/28/18 [History] Amiodarone [Cordarone] 400 mg PO DAILY 30 Days tablet 04/02/18 [Rx] Omeprazole [PriLOSEC] 20 mg PO DAILY@0630 #30 capsule. 04/02/18 [Rx] Allergy/AdvReac Type Severity Reaction Status Date / Time No Known Allergies Allergy Verified 05/25/18 12:50 All Systems PM: A 10-system review of systems was performed and is negative for pertinent findings except as documented above in the HPI. Review of systems: Review of systems from his December 2017 [facility] hospitalization reviewed and revised as below. Gen.: His weight decreased from 78.471 kg on 10/11/2017 to 72.121 kg on admission December 2017 but has risen slightly to 74.843 kg on admission now. Cardiovascular: He has history of hypertension and has had several MIs. He had 7 stents placed beginning 1998 prior to undergoing two-vessel CABG surgery August 2016. A porcine mitral valve replacement was done at that surgery also. An 8th stent was placed 09/29/2017. Most recent heart catheter was 03/28/2018 which showed 50% stenosis in the distal LMCA, 40% stenosis in the proximal LMCA, 100% stenosis in the mid LAD, no stenosis in circumflex and first marginal, 100% stenosis in the proximal RCA with [id number] collaterals, and patent GILL to mid LAD and SVG to first marginal grafts. He has history of paroxysmal atrial fibrillation and takes Xarelto. He has CHF with limited echocardiogram 03/28/2018 showing LVEF of 20-25%. The left ventricular end- diastolic diameter was elevated 6.40 cm. The interventricular septum and posterior wall thickness measurements were normal at 0.94 and 0.78 cm respectively. Echocardiogram 02/08/2018 had shown mild aortic regurgitation. Normal pulmonary pressure was reported although estimated RVSP was not recorded. He denies DVT or pulmonary embolus. He has known PAD and has had ao rtobifemoral bypass several years ago. On 08/11/2017 he had right common femoral artery endarterectomy with Hemashield patch angioplasty, right popliteal and tibioperoneal trunk endarterectomy with pericardial patch angioplasty, right common femoral to tibioperoneal trunk artery bypass with graft placement, and right posterior tibial artery thrombectomy. He had an ICD/pacemaker placed originally in 1998 with replacement unit March 2018. Respiratory: He smoked from age [age] up to 1 pack per day. He has not had PFTs and does not use home oxygen. GI: Denies disorders of his liver gallbladder or exocrine pancreas : He denies hematuria dysuria or kidney stones Neurologic: As per history of present illness Endocrine: He has hyperlipidemia but denies diabetes or thyroid disease Hematology/oncology: He denies blood disorders cancers or anemia Psychiatric: He denies anxiety depression or other mental health issues [place] skeletal: As per history of present illness - Constitutional Vitals: Temp Pulse Resp BP Pulse Ox 97.9 F 60 16 102/60 93 01/03/19 06:33 01/03/19 06:33 01/03/19 06:33 01/03/19 06:33 01/03/19 06:33 Exam: Gen.: He is a well-developed well-nourished male lying quietly in bed who appears in no severe distress at present time HEENT: Head is atraumatic and normocephalic. Eyes: EOMI. There is no scleral icterus. Mouth: Mucosa is moist. Neck: Supple and nontender. There is no thyromegaly or adenopathy noted. Heart: Regular without murmurs gallops or ectopics. Lungs: No wheezes or crackles are heard. Abdomen: Soft and nontender. No masses or guarding are noted. Extremities: There is no cyanosis edema or clubbing noted. Dorsalis pedis and posttibial pulses are trace to 1+ palpable bilaterally. Neurologic: Mental status: He is talkative and a fair to good historian. He seems confused about his length of stay in the hospital and some other details of his history. Cranial nerves: Smile is symmetric. Forehead wrinkles bilaterally. Tongue protrudes midline. EOMI. Motor: There is no pronator drift. There is minimal cogwheeling and rigidity on passive range of motion. Myerson sign is negative. Cerebellar: Finger to nose is intact bilaterally. Skin: Warm and dry Internal Med - H&P Results - Labs CBC & Chem 7: 01/03/19 05:10 01/03/19 05:10 Labs: Short CBC 01/02/19 01/03/19 Range/Units 11:05 05:10 WBC 9.3 8.0 (4.3-11.1) K/mcL Hgb 13.5 12.2 L (12.9-16.9) g/dL Hct 40.8 36.5 L (37.5-50.1) % Plt Count 179 162 (140-400) K/mcL Neutrophils # 7.5 5.9 (1.6-8.9) K/mcL BMP 01/02/19 01/03/19 11:05 05:10 Sodium 140 138 Potassium 3.3 L 3.7 Chloride 108 H 110 H Carbon Dioxide 24 21 L BUN 27 H 24 H Creatinine 1.15 0.93 Glucose 144 H 104 Calcium 8.7 8.3 L Cardiac Enzymes 01/02/19 Range/Units 11:05 Troponin I < 0.03 (< 0.04) ng/mL Liver Function 01/02/19 Range/Units 11:05 Total Bilirubin 1.3 H (0.3-1.0) mg/dL AST 47 H (13-39) Units/L ALT 46 (7-52) Units/L Alkaline Phosphatase 60 (34-104) Units/L Albumin 2.3 L (3.5-5.7) g/dL Urine 01/02/19 Range/Units 21:15 Urine Color Yellow (Yellow) Urine Clarity Slightly Cloudy A (Clear) Urine pH 5.5 (5.0-8.0) pH Units Ur Specific Fallon 1.020 (1.010-1.025) Urine Protein Trace (Neg-Trace) mg/dL Urine Glucose (UA) Normal (Normal) mg/dL - Impressions ITS Impressions Chest X-Ray 01/02/19 10:26 IMPRESSION: 1. Mild pulmonary edema with basilar atelectasis and small effusions. 2. COPD. 3. Status post CABG. D/ / 01/02/2019 10:54:19 Chasidy Cm MD / peggy Interpreting Provider: Chasidy Cm MD
[2019-01-03] MEDS: Isosorbide MONOnitrate (24 HR) 30 MG TAB.ER.24H PO SCH (13:27)
[2019-01-03] MEDS: *HR* Rivaroxaban 15 MG TABLET PO SCH (17:18)
[2019-01-04] MEDS: 0.45 % Sodium Chloride w/KCl 20 MEQ/1,000 ML MLS IVC SCH (06:13)
[2019-01-04 06:55] LABS: Basophils # 0.1 K/mcL (0.0-0.2); Basophils % 0.6 %; Eosinophils # 0.2 K/mcL (0.0-0.6); Eosinophils % 2.3 %; Hematocrit 36.8 % (37.5-50.1); Hemoglobin 12.1 g/dL (12.9-16.9); Immature Granulocytes % 1.3 % (0-4); Lymphocytes # 1.3 K/mcL (0.6-4.6); Mean Corpuscular HGB Conc 32.9 g/dL (31.6-35.5); Mean Corpuscular Hemoglobin 27.7 pg (28.0-33.3); Mean Corpuscular Volume 84.2 fL (83.0-100.0); Mean Platelet Volume 11.7 fL (9.4-12.4); Monocytes # 0.7 K/mcL (0.0-1.3); Monocytes % 8.8 %; Neutrophils # 5.8 K/mcL (1.6-8.9); Platelet Count 206 K/mcL (140-400); Red Blood Count 4.37 M/mcL (4.19-5.50); Red Cell Distribution Width 16.8 % (11.5-14.5)
[2019-01-04 07:11] LABS: BUN/Creatinine Ratio 23 (6-26); Blood Urea Nitrogen 21 mg/dL (8-23); Calcium 8.4 mg/dL (8.6-10.3); Carbon Dioxide 19 mEq/L (23-29); Chloride 110 mEq/L (98-107); Glucose 95 mg/dL (70-105); Osmolality,Calculated 283 (280-300); Potassium 3.9 mEq/L (3.5-5.1); Sodium 135 mEq/L (136-145); eGFR For Non-African Americans > 60 (> 60)
[2019-01-04] MEDS: Cholecalciferol (D-3) 1,000 UNIT TABLET PO SCH (09:04)
[2019-01-04] MEDS: *HR* Amiodarone 200 MG TABLET PO SCH (09:05)
[2019-01-04] MEDS: Isosorbide MONOnitrate (24 HR) 30 MG TAB.ER.24H PO SCH (09:05)
[2019-01-04 09:24] LABS: % Iron Saturation 15 % (20-55); Iron 19 mcg/dL (65-175); Transferrin 93 mg/dL (203-362)
[2019-01-04 09:44] LABS: Ferritin 932 ng/mL (20-250)
[2019-01-04 09:48] LABS: Folate 7.9 ng/mL (3.0-16.0)
[2019-01-04 10:56] VITALS: BP 93/54
--- NOTE | 2019-01-04 11:26 | Discharge Summary ---
Date of Encounter: 01/04/19 Time of Encounter: 11:10 - Discharge Diagnosis (1) Multiple falls Priority: Primary Status: Acute (2) Azotemia Priority: Secondary Status: Acute (3) Hypokalemia Priority: Secondary Status: Resolved (4) Anemia Priority: Secondary Status: Acute Qualifiers: Anemia type: unspecified type Qualified Code(s): D64.9 - Anemia, unspecified (5) Paroxysmal atrial fibrillation Priority: Secondary Status: Chronic (6) Congestive heart failure Priority: Secondary Status: Chronic Qualifiers: Heart failure type: combined systolic and diastolic Heart failure chronicity: chronic Qualified Code(s): I50.42 - Chronic combined systolic (congestive) and diastolic (congestive) heart failure Hospital course: Mr. Kowalski is a 78 year old male who came to emergency room after he experienced a fall while ambulating at home approximately 0830 the morning of admission. He was ambulating with his and she reports "his feet just would not move". She saw he was about to fall and attempted to stabilize him but both of them fell to the floor without injury. He was brought to emergency room and evaluated and was admitted to [facility] for ongoing care needs. Initial orders were written by the emergency room physician. I saw him on January 03 and performed a history and physical. He was given IV fluids and az otemia resolved with BUN and creatinine decreasing to 21 and 0.93 respectively by day of discharge with estimated GFR greater than 60. Orthostatic vital signs showed no significant change. He remained borderline hypotensive throughout his hospital stay and metoprolol will remained discontinued at discharge. He was started on Imdur for heart failure. Metoprolol was discontinued because of borderline hypotension. BN peptide decreased to 642 on January 04 from previous stay level of 822. Anemia testing showed iron 19, transferrin saturation 15%, transferrin 93, ferritin 932, B12 875, and folate 7.9. Hemoglobin decrease to 12.1 on day of discharge which was stable from the previous day. His PCP can monitor determine if a trial of ferrous sulfate is warranted. Supplemental potassium was given hypokalemia resolved. He had urinary retention requiring Garcia catheter insertion. He will be discharged with Garcia in place and a leg bag. Proscar and Flomax will be started. His PCP can monitor refer to urology as needed. PT and OT evaluations were done. It was felt he would benefit from home health services to continue therapy at home. Heart rate on telemetry decreased to 36/m for a brief period in the underwriting specialist hours of January 03. The rhythm strip was faxed to his mechanical maintenance supervisor's office. It was recommended his pacemaker be interrogated again. This will be arranged soon as possible as an outpatient. I explained to the family that his falls at home could be related to transient bradycardia. He will follow with his PCP Dr. Hopkins within 1 week. - Time Spent with Patient Total time spent providing and/or coordinating discharge services: - Discharge Medications Prescriptions: Finasteride [Proscar] 5 mg PO DAILY #30 tablet Isosorbide MONOnitrate (24 HR) [Imdur] 60 mg PO DAILY #30 tab.er.24h Tamsulosin [Flomax] 0.4 mg PO DAILY #30 cap.er.24h Home Medications: Albuterol Sulfate [Ventolin Hfa] 90 mcg IH DAILY 03/28/18 [History] Atorvastatin [Lipitor] 20 mg PO HS 03/28/18 [History] Cholecalciferol (Vitamin D3) [Vitamin D3] 2,000 unit PO DAILY 03/28/18 [History] Montelukast [Singulair] 10 mg PO DAILY 03/28/18 [History] Rivaroxaban [Xarelto] 15 mg PO DAILY 03/28/18 [History] Amiodarone [Cordarone] 400 mg PO DAILY 30 Days tablet 04/02/18 [Rx] Omeprazole [PriLOSEC] 20 mg PO DAILY@0630 #30 capsule. 04/02/18 [Rx] Finasteride [Proscar] 5 mg PO DAILY #30 tablet 01/04/19 [Rx] Isosorbide MONOnitrate (24 HR) [Imdur] 60 mg PO DAILY #30 tab.er.24h 01/04/19 [Rx] Tamsulosin [Flomax] 0.4 mg PO DAILY #30 cap.er.24h 01/04/19 [Rx] Allergies/Adverse Reactions: Allergy/AdvReac Type Severity Reaction Status Date / Time No Known Allergies Allergy Verified 05/25/18 12:50 Date of admission: 01/02/19 13:09 Primary care physician: Galindo Hopkins DO Consults: 01/03/19 10:31 Consult to Occupational Therapy [CONS] Routine Comment: Evaluate, develop and implement POC Reason for Consult: fall, weakness Does patient have active BEDREST order?: No Is patient medically & hemodynamically stable?: Yes Patient assessed for mobility or mobilized this visit?: Yes Consult to Physical Therapy [CONS] Routine Comment: Evaluate, develop and implement POC Reason for Consult: Fall, weakness Does patient have active BEDREST order?: No Is patient medically & hemodynamically stable?: Yes Patient assessed for mobility or mobilized this visit?: Yes - Constitutional Vitals: Temp Pulse Resp BP Pulse Ox 97.3 F L 60 18 93/54 93 01/04/19 10:55 01/04/19 10:55 01/04/19 10:55 01/04/19 10:55 01/04/19 10:55 - Patient Status Disposition: Home Health Service Condition: Fair - Discharge Instructions Follow Up With: Galindo Hopkins DO [Primary Care Provider] - 1 week - Diet and Activity Activity: resume usual activities as tolerated Diet: advance to your usual diet
--- NOTE | 2019-01-04 11:44 | Physician Discharge Referral ---
Home Health/Hosp Referral Info Transfer to: Home Health Attending Provider: Judah Provider in Charge Post Discharge: PCP (Kellie) - Diagnosis (1) Multiple falls Priority: Primary Status: Acute (2) Azotemia Priority: Secondary Status: Resolved (3) Hypokalemia Priority: Secondary Status: Resolved (4) Anemia Priority: Secondary Status: Acute (5) Paroxysmal atrial fibrillation Priority: Secondary Status: Chronic (6) Congestive heart failure Priority: Secondary Status: Chronic - Respiratory Orders Smoking Cessation: Smoking cessation has been advised. For more information, call the [place] Tobacco Quit Line at 4-446-PXXR-NOW. - Diet/Nutrition Diet/Nutrition Orders: Cardiac - Activity Activity Orders: Walker - Services Needed Following services are medically necessary services: Nursing, Home Health Aide, Physical Therapy, Occupational Therapy - Transfer Medications Prescriptions: Finasteride [Proscar] 5 mg PO DAILY #30 tablet Isosorbide MONOnitrate (24 HR) [Imdur] 60 mg PO DAILY #30 tab.er.24h Tamsulosin [Flomax] 0.4 mg PO DAILY #30 cap.er.24h Home Medications: Albuterol Sulfate [Ventolin Hfa] 90 mcg IH DAILY 03/28/18 [History] Atorvastatin [Lipitor] 20 mg PO HS 03/28/18 [History] Cholecalciferol (Vitamin D3) [Vitamin D3] 2,000 unit PO DAILY 03/28/18 [History] Montelukast [Singulair] 10 mg PO DAILY 03/28/18 [History] Rivaroxaban [Xarelto] 15 mg PO DAILY 03/28/18 [History] Amiodarone [Cordarone] 400 mg PO DAILY 30 Days tablet 04/02/18 [Rx] Omeprazole [PriLOSEC] 20 mg PO DAILY@0630 #30 capsule. 04/02/18 [Rx] Finasteride [Proscar] 5 mg PO DAILY #30 tablet 01/04/19 [Rx] Isosorbide MONOnitrate (24 HR) [Imdur] 60 mg PO DAILY #30 tab.er.24h 01/04/19 [Rx] Tamsulosin [Flomax] 0.4 mg PO DAILY #30 cap.er.24h 01/04/19 [Rx] Allergies/Adverse Reactions: Allergy/AdvReac Type Severity Reaction Status Date / Time No Known Allergies Allergy Verified 05/25/18 12:50 Certification: Further, I certify that my clinical findings support that this patient is homebound (i.e. absences from home require considerable and taxing effort and are for medical reasons or adventism services or infrequently or short duration when for other reasons) because: Homebound Reason: Leaving home requires considerable and taxing effort due to condition (Impaired walking ability secondary to CHF) Attestation: My signature below is to certify that this patient is under my care and that I, or nurse practitioner, or a physician's assistant mechanic working with me, has a [id number] encounter with this patient.
--- NOTE | 2019-01-05 14:36 | Electrocardiograph Report ---
[place] [id number] Test Date: 2019-01-02 Pat Name: Leo Kowalski Department: EDP-16 Room: [facility] Gender: M Ed Case Manager: : 1940 Requested By: Vani Odonnell Order Number: [id number] Reading MD: Paige Kingston Measurements Intervals [place] Rate: 71 P: 245 KS: 49 QRS: 190 QRSD: 143 T: -16 QT: 464 QTc: 505 Interpretive Statements A-V dual-paced rhythm with some inhibition No further analysis attempted due to paced rhythm Electronically Signed On 01-05-2019 14:34:39 EST by Paige Kingston
== END 2019-01-04 13:25 | disposition home health service (06) ==
LOC: EMEROOPIK 10:11 → INPPIK 10:11
PROVIDERS: ADMIT Internal Medicine; ATTEND Internal Medicine

== ENCOUNTER 2019-01-13 12:35 | Inpatient (IN) ==
[2019-01-13] MEDS: Mirtazapine 15 MG TABLET PO SCH (20:17)
[2019-01-14 08:30] LABS: Basophils # 0.1 K/mcL (0.0-0.2); Basophils % 0.9 %; Eosinophils # 0.2 K/mcL (0.0-0.6); Eosinophils % 2.4 %; Hematocrit 39.8 % (37.5-50.1); Hemoglobin 12.7 g/dL (12.9-16.9); Immature Granulocytes % 1.3 % (0-4); Lymphocytes # 1.3 K/mcL (0.6-4.6); Lymphocytes % 19.4 %; Mean Corpuscular HGB Conc 31.9 g/dL (31.6-35.5); Mean Corpuscular Hemoglobin 27.9 pg (28.0-33.3); Mean Corpuscular Volume 87.3 fL (83.0-100.0); Mean Platelet Volume 11.8 fL (9.4-12.4); Monocytes # 0.6 K/mcL (0.0-1.3); Monocytes % 8.2 %; Neutrophils # 4.6 K/mcL (1.6-8.9); Platelet Count 241 K/mcL (140-400); Red Blood Count 4.56 M/mcL (4.19-5.50); Red Cell Distribution Width 17.5 % (11.5-14.5); Segmented Neutrophils % 67.8 %; White Blood Count 6.7 K/mcL (4.3-11.1)
[2019-01-14 08:45] LABS: BUN/Creatinine Ratio 28 (6-26); Blood Urea Nitrogen 27 mg/dL (8-23); Carbon Dioxide 26 mEq/L (23-29); Chloride 110 mEq/L (98-107); Glucose 102 mg/dL (70-105); Osmolality,Calculated 297 (280-300); Potassium 3.8 mEq/L (3.5-5.1); Sodium 141 mEq/L (136-145); eGFR For African Americans > 60 (> 60); eGFR For Non-African Americans > 60 (> 60)
[2019-01-14] MEDS: Finasteride 5 MG TABLET PO SCH (10:53)
[2019-01-14] MEDS: *HR* Amiodarone 200 MG TABLET PO SCH (10:53)
[2019-01-14] MEDS: Cholecalciferol (D-3) 1,000 UNIT (25MCG) TABLET PO SCH (10:53)
[2019-01-14] MEDS: Aspirin 81 MG TAB.CHEW PO SCH (10:54)
[2019-01-14] MEDS: *HR* Rivaroxaban 15 MG TABLET PO SCH (10:54)
[2019-01-14] MEDS: Vitamin B Complex/Vit C/Vit E 1 EACH TABLET PO SCH (10:54)
[2019-01-14] MEDS: Acetaminophen 325 MG TABLET PO PRN (10:56)
[2019-01-14] MEDS: Isosorbide MONOnitrate (24 HR) 30 MG TAB.ER.24H PO SCH (21:54)
[2019-01-14] MEDS: Mirtazapine 15 MG TABLET PO SCH (21:54)
[2019-01-15] MEDS: Cholecalciferol (D-3) 1,000 UNIT (25MCG) TABLET PO SCH (09:51)
[2019-01-15] MEDS: Isosorbide MONOnitrate (24 HR) 30 MG TAB.ER.24H PO SCH (09:51)
[2019-01-15] MEDS: Aspirin 81 MG TAB.CHEW PO SCH (09:51)
[2019-01-15] MEDS: Finasteride 5 MG TABLET PO SCH (09:52)
[2019-01-15] MEDS: *HR* Rivaroxaban 15 MG TABLET PO SCH (09:52)
[2019-01-15] MEDS: Vitamin B Complex/Vit C/Vit E 1 EACH TABLET PO SCH (09:52)
[2019-01-15] MEDS: *HR* Amiodarone 200 MG TABLET PO SCH (09:52)
[2019-01-15] MEDS: Acetaminophen 325 MG TABLET PO PRN (17:18)
[2019-01-15] MEDS: Mirtazapine 15 MG TABLET PO SCH (20:33)
[2019-01-16] MEDS: *HR* Rivaroxaban 15 MG TABLET PO SCH (08:14)
[2019-01-16] MEDS: Aspirin 81 MG TAB.CHEW PO SCH (08:14)
[2019-01-16] MEDS: Acetaminophen 325 MG TABLET PO PRN ×2 (08:14→20:18)
[2019-01-16] MEDS: Sennosides 8.6 MG TABLET PO PRN (08:14)
[2019-01-16] MEDS: Vitamin B Complex/Vit C/Vit E 1 EACH TABLET PO SCH (08:15)
[2019-01-16] MEDS: *HR* Amiodarone 200 MG TABLET PO SCH (08:15)
[2019-01-16] MEDS: Cholecalciferol (D-3) 1,000 UNIT (25MCG) TABLET PO SCH (08:15)
[2019-01-16] MEDS: Isosorbide MONOnitrate (24 HR) 30 MG TAB.ER.24H PO SCH (08:15)
[2019-01-16] MEDS: Finasteride 5 MG TABLET PO SCH (08:15)
[2019-01-17] MEDS: Acetaminophen 325 MG TABLET PO PRN ×3 (02:17→18:18)
[2019-01-17] MEDS: Cholecalciferol (D-3) 1,000 UNIT (25MCG) TABLET PO SCH (08:49)
[2019-01-17] MEDS: Vitamin B Complex/Vit C/Vit E 1 EACH TABLET PO SCH (08:49)
[2019-01-17] MEDS: Isosorbide MONOnitrate (24 HR) 30 MG TAB.ER.24H PO SCH (08:49)
[2019-01-17] MEDS: Finasteride 5 MG TABLET PO SCH (08:50)
[2019-01-17] MEDS: *HR* Amiodarone 200 MG TABLET PO SCH (08:50)
[2019-01-17] MEDS: *HR* Rivaroxaban 15 MG TABLET PO SCH (08:50)
[2019-01-17] MEDS: Aspirin 81 MG TAB.CHEW PO SCH (08:50)
[2019-01-17] MEDS: Sennosides 8.6 MG TABLET PO PRN (16:24)
[2019-01-18 06:03] LABS: Basophils # 0.1 K/mcL (0.0-0.2); Eosinophils # 0.2 K/mcL (0.0-0.6); Eosinophils % 3.5 %; Hematocrit 34.7 % (37.5-50.1); Hemoglobin 11.2 g/dL (12.9-16.9); Immature Granulocytes % 1.5 % (0-4); Lymphocytes # 1.1 K/mcL (0.6-4.6); Lymphocytes % 17.4 %; Mean Corpuscular HGB Conc 32.3 g/dL (31.6-35.5); Mean Corpuscular Hemoglobin 27.7 pg (28.0-33.3); Mean Corpuscular Volume 85.7 fL (83.0-100.0); Mean Platelet Volume 12.2 fL (9.4-12.4); Monocytes # 0.5 K/mcL (0.0-1.3); Monocytes % 7.5 %; Neutrophils # 4.2 K/mcL (1.6-8.9); Platelet Count 187 K/mcL (140-400); Red Blood Count 4.05 M/mcL (4.19-5.50); Red Cell Distribution Width 17.7 % (11.5-14.5); Segmented Neutrophils % 69.1 %
[2019-01-18 06:21] LABS: Alanine Aminotransferase 46 Units/L (7-52); Albumin 2.2 g/dL (3.5-5.7); Albumin/Globulin Ratio 0.6 (1.1-2.2); Alkaline Phosphatase 61 Units/L (34-104); Aspartate Amino Transferase 45 Units/L (13-39); BUN/Creatinine Ratio 39 (6-26); Bilirubin,Total 0.8 mg/dL (0.3-1.0); Blood Urea Nitrogen 31 mg/dL (8-23); Calcium 8.6 mg/dL (8.6-10.3); Carbon Dioxide 23 mEq/L (23-29); Chloride 112 mEq/L (98-107); Globulin 3.8 g/dL (2.4-3.5); Glucose 92 mg/dL (70-105); Osmolality,Calculated 298 (280-300); Potassium 3.4 mEq/L (3.5-5.1); Sodium 141 mEq/L (136-145); eGFR For African Americans > 60 (> 60); eGFR For Non-African Americans > 60 (> 60)
[2019-01-18] MEDS: *HR* Rivaroxaban 15 MG TABLET PO SCH (09:33)
[2019-01-18] MEDS: Vitamin B Complex/Vit C/Vit E 1 EACH TABLET PO SCH (09:33)
[2019-01-18] MEDS: Aspirin 81 MG TAB.CHEW PO SCH (09:33)
[2019-01-18] MEDS: Isosorbide MONOnitrate (24 HR) 30 MG TAB.ER.24H PO SCH (09:33)
[2019-01-18] MEDS: *HR* Amiodarone 200 MG TABLET PO SCH (09:33)
[2019-01-18] MEDS: Cholecalciferol (D-3) 1,000 UNIT (25MCG) TABLET PO SCH (09:33)
[2019-01-18] MEDS: Acetaminophen 325 MG TABLET PO PRN (09:34)
[2019-01-18] MEDS: Finasteride 5 MG TABLET PO SCH (09:34)
[2019-01-18] MEDS: Mirtazapine 15 MG TABLET PO SCH (21:37)
[2019-01-19 05:38] LABS: Basophils % 0.6 %; Eosinophils # 0.1 K/mcL (0.0-0.6); Eosinophils % 1.3 %; Hematocrit 34.7 % (37.5-50.1); Hemoglobin 11.1 g/dL (12.9-16.9); Immature Granulocytes % 1.2 % (0-4); Lymphocytes % 14.9 %; Mean Corpuscular Hemoglobin 27.5 pg (28.0-33.3); Mean Corpuscular Volume 85.9 fL (83.0-100.0); Mean Platelet Volume 11.5 fL (9.4-12.4); Monocytes # 0.5 K/mcL (0.0-1.3); Monocytes % 7.8 %; Neutrophils # 5.1 K/mcL (1.6-8.9); Platelet Count 238 K/mcL (140-400); Red Blood Count 4.04 M/mcL (4.19-5.50); Red Cell Distribution Width 17.8 % (11.5-14.5); Segmented Neutrophils % 74.2 %; White Blood Count 6.9 K/mcL (4.3-11.1)
[2019-01-19 06:04] LABS: BUN/Creatinine Ratio 38 (6-26); Blood Urea Nitrogen 29 mg/dL (8-23); Calcium 8.8 mg/dL (8.6-10.3); Carbon Dioxide 23 mEq/L (23-29); Chloride 112 mEq/L (98-107); Glucose 88 mg/dL (70-105); Osmolality,Calculated 299 (280-300); Potassium 3.5 mEq/L (3.5-5.1); Sodium 142 mEq/L (136-145); eGFR For African Americans > 60 (> 60); eGFR For Non-African Americans > 60 (> 60)
[2019-01-19] MEDS: *HR* Rivaroxaban 15 MG TABLET PO SCH (07:59)
[2019-01-19] MEDS: Aspirin 81 MG TAB.CHEW PO SCH (07:59)
[2019-01-19] MEDS: Isosorbide MONOnitrate (24 HR) 30 MG TAB.ER.24H PO SCH (07:59)
[2019-01-19] MEDS: Cholecalciferol (D-3) 1,000 UNIT (25MCG) TABLET PO SCH (07:59)
[2019-01-19] MEDS: Bumetanide 1 MG TABLET PO SCH (07:59)
[2019-01-19] MEDS: Vitamin B Complex/Vit C/Vit E 1 EACH TABLET PO SCH (07:59)
[2019-01-19] MEDS: Finasteride 5 MG TABLET PO SCH (07:59)
[2019-01-19] MEDS: Sennosides 8.6 MG TABLET PO PRN (08:00)
[2019-01-19] MEDS: *HR* Amiodarone 200 MG TABLET PO SCH (08:00)
[2019-01-19] MEDS: Mirtazapine 15 MG TABLET PO SCH (20:50)
[2019-01-20] MEDS: Finasteride 5 MG TABLET PO SCH (09:25)
[2019-01-20] MEDS: *HR* Rivaroxaban 15 MG TABLET PO SCH (09:25)
[2019-01-20] MEDS: Isosorbide MONOnitrate (24 HR) 30 MG TAB.ER.24H PO SCH (09:26)
[2019-01-20] MEDS: *HR* Amiodarone 200 MG TABLET PO SCH (09:27)
[2019-01-20] MEDS: Cholecalciferol (D-3) 1,000 UNIT (25MCG) TABLET PO SCH (09:28)
[2019-01-20] MEDS: Vitamin B Complex/Vit C/Vit E 1 EACH TABLET PO SCH (09:28)
[2019-01-20] MEDS: Aspirin 81 MG TAB.CHEW PO SCH (09:28)
[2019-01-20] MEDS: Metoprolol XL (24 HR) Succ 25 MG TAB.ER.24H PO SCH (13:53)
[2019-01-20] MEDS: Mirtazapine 15 MG TABLET PO SCH (21:15)
[2019-01-21] MEDS: Cholecalciferol (D-3) 1,000 UNIT (25MCG) TABLET PO SCH (08:31)
[2019-01-21] MEDS: Finasteride 5 MG TABLET PO SCH (08:33)
[2019-01-21] MEDS: Vitamin B Complex/Vit C/Vit E 1 EACH TABLET PO SCH (08:34)
[2019-01-21] MEDS: Aspirin 81 MG TAB.CHEW PO SCH (08:34)
[2019-01-21] MEDS: *HR* Rivaroxaban 15 MG TABLET PO SCH (08:34)
[2019-01-21] MEDS: Bumetanide 1 MG TABLET PO SCH (08:35)
[2019-01-21] MEDS: *HR* Amiodarone 200 MG TABLET PO SCH (08:36)
[2019-01-21] MEDS: Metoprolol XL (24 HR) Succ 25 MG TAB.ER.24H PO SCH (10:51)
[2019-01-21] MEDS: Isosorbide MONOnitrate (24 HR) 30 MG TAB.ER.24H PO SCH (10:51)
[2019-01-21] MEDS: Mirtazapine 15 MG TABLET PO SCH (21:16)
[2019-01-22] MEDS: Aspirin 81 MG TAB.CHEW PO SCH (09:51)
[2019-01-22] MEDS: Vitamin B Complex/Vit C/Vit E 1 EACH TABLET PO SCH (09:52)
[2019-01-22] MEDS: Cholecalciferol (D-3) 1,000 UNIT (25MCG) TABLET PO SCH (09:52)
[2019-01-22] MEDS: *HR* Rivaroxaban 15 MG TABLET PO SCH (09:52)
[2019-01-22] MEDS: Finasteride 5 MG TABLET PO SCH (09:52)
[2019-01-22] MEDS: *HR* Amiodarone 200 MG TABLET PO SCH (09:53)
[2019-01-22] MEDS: Metoprolol XL (24 HR) Succ 25 MG TAB.ER.24H PO SCH (09:53)
[2019-01-22] MEDS: Isosorbide MONOnitrate (24 HR) 30 MG TAB.ER.24H PO SCH (09:53)
[2019-01-22] MEDS: Mirtazapine 15 MG TABLET PO SCH (21:43)
[2019-01-23] MEDS: Finasteride 5 MG TABLET PO SCH (10:04)
[2019-01-23] MEDS: Cholecalciferol (D-3) 1,000 UNIT (25MCG) TABLET PO SCH (10:04)
[2019-01-23] MEDS: Vitamin B Complex/Vit C/Vit E 1 EACH TABLET PO SCH (10:04)
[2019-01-23] MEDS: Aspirin 81 MG TAB.CHEW PO SCH (10:05)
[2019-01-23] MEDS: *HR* Rivaroxaban 15 MG TABLET PO SCH (10:05)
[2019-01-23] MEDS: *HR* Amiodarone 200 MG TABLET PO SCH (10:06)
[2019-01-23] MEDS: Isosorbide MONOnitrate (24 HR) 30 MG TAB.ER.24H PO SCH (14:20)
[2019-01-23] MEDS: Bumetanide 1 MG TABLET PO SCH (14:20)
[2019-01-23] MEDS: Metoprolol XL (24 HR) Succ 25 MG TAB.ER.24H PO SCH (14:20)
[2019-01-23] MEDS: Mirtazapine 15 MG TABLET PO SCH (20:47)
[2019-01-24 05:29] LABS: Basophils % 0.5 %; Eosinophils # 0.1 K/mcL (0.0-0.6); Eosinophils % 0.8 %; Hematocrit 38.1 % (37.5-50.1); Hemoglobin 11.9 g/dL (12.9-16.9); Immature Granulocytes % 0.6 % (0-4); Lymphocytes % 13.2 %; Mean Corpuscular HGB Conc 31.2 g/dL (31.6-35.5); Mean Corpuscular Hemoglobin 27.5 pg (28.0-33.3); Mean Platelet Volume 12.2 fL (9.4-12.4); Monocytes # 0.6 K/mcL (0.0-1.3); Monocytes % 8.3 %; Neutrophils # 5.9 K/mcL (1.6-8.9); Platelet Count 245 K/mcL (140-400); Red Blood Count 4.33 M/mcL (4.19-5.50); Red Cell Distribution Width 18.3 % (11.5-14.5); Segmented Neutrophils % 76.6 %; White Blood Count 7.8 K/mcL (4.3-11.1)
[2019-01-24 05:52] LABS: BUN/Creatinine Ratio 36 (6-26); Blood Urea Nitrogen 32 mg/dL (8-23); Calcium 9.1 mg/dL (8.6-10.3); Carbon Dioxide 22 mEq/L (23-29); Chloride 114 mEq/L (98-107); Glucose 99 mg/dL (70-105); Osmolality,Calculated 307 (280-300); Potassium 3.8 mEq/L (3.5-5.1); Sodium 145 mEq/L (136-145); eGFR For African Americans > 60 (> 60); eGFR For Non-African Americans > 60 (> 60)
[2019-01-24] MEDS: *HR* Amiodarone 200 MG TABLET PO SCH (09:59)
[2019-01-24] MEDS: *HR* Rivaroxaban 15 MG TABLET PO SCH (10:00)
[2019-01-24] MEDS: Cholecalciferol (D-3) 1,000 UNIT (25MCG) TABLET PO SCH (10:00)
[2019-01-24] MEDS: Vitamin B Complex/Vit C/Vit E 1 EACH TABLET PO SCH (10:00)
[2019-01-24] MEDS: Aspirin 81 MG TAB.CHEW PO SCH ×2 (10:01→10:14)
[2019-01-24] MEDS: Finasteride 5 MG TABLET PO SCH (10:02)
[2019-01-24] MEDS: Metoprolol XL (24 HR) Succ 25 MG TAB.ER.24H PO SCH (10:19)
[2019-01-24] MEDS: Isosorbide MONOnitrate (24 HR) 60 MG TAB.ER.24H PO SCH (10:19)
[2019-01-24] MEDS: Isosorbide MONOnitrate (24 HR) 30 MG TAB.ER.24H PO SCH (12:24)
[2019-01-24] MEDS: Mirtazapine 15 MG TABLET PO SCH (21:22)
[2019-01-25] MEDS ORDERED: Isosorbide MONOnitrate (24 HR) 60 MG TAB.ER.24H PO SCH (09:00)
[2019-01-25] MEDS: Vitamin B Complex/Vit C/Vit E 1 EACH TABLET PO SCH (09:48)
[2019-01-25] MEDS: *HR* Amiodarone 200 MG TABLET PO SCH (09:48)
[2019-01-25] MEDS: Zinc Sulfate 220 MG CAPSULE PO SCH (09:48)
[2019-01-25] MEDS: Isosorbide MONOnitrate (24 HR) 60 MG TAB.ER.24H PO SCH (09:48)
[2019-01-25] MEDS: Bumetanide 1 MG TABLET PO SCH (09:48)
[2019-01-25] MEDS: Cholecalciferol (D-3) 1,000 UNIT (25MCG) TABLET PO SCH (09:49)
[2019-01-25] MEDS: Metoprolol XL (24 HR) Succ 25 MG TAB.ER.24H PO SCH (09:49)
[2019-01-25] MEDS: Finasteride 5 MG TABLET PO SCH (09:49)
[2019-01-25] MEDS: Mirtazapine 15 MG TABLET PO SCH (20:51)
[2019-01-26] MEDS: Cholecalciferol (D-3) 1,000 UNIT (25MCG) TABLET PO SCH (09:20)
[2019-01-26] MEDS: Isosorbide MONOnitrate (24 HR) 60 MG TAB.ER.24H PO SCH (09:20)
[2019-01-26] MEDS: *HR* Amiodarone 200 MG TABLET PO SCH (09:20)
[2019-01-26] MEDS: Zinc Sulfate 220 MG CAPSULE PO SCH (09:21)
[2019-01-26] MEDS: Finasteride 5 MG TABLET PO SCH (09:21)
[2019-01-26] MEDS: Vitamin B Complex/Vit C/Vit E 1 EACH TABLET PO SCH (09:21)
[2019-01-26] MEDS: Metoprolol XL (24 HR) Succ 25 MG TAB.ER.24H PO SCH (09:22)
[2019-01-26] MEDS: Mirtazapine 15 MG TABLET PO SCH (20:33)
[2019-01-27 07:15] VITALS: BP 100/51
[2019-01-27] MEDS: Bumetanide 1 MG TABLET PO SCH (09:14)
[2019-01-27] MEDS: Vitamin B Complex/Vit C/Vit E 1 EACH TABLET PO SCH (09:14)
[2019-01-27] MEDS: Finasteride 5 MG TABLET PO SCH (09:14)
[2019-01-27] MEDS: Zinc Sulfate 220 MG CAPSULE PO SCH (09:14)
[2019-01-27] MEDS: Cholecalciferol (D-3) 1,000 UNIT (25MCG) TABLET PO SCH (09:14)
[2019-01-27] MEDS: Isosorbide MONOnitrate (24 HR) 60 MG TAB.ER.24H PO SCH (09:15)
[2019-01-27] MEDS: Metoprolol XL (24 HR) Succ 25 MG TAB.ER.24H PO SCH (11:10)
[2019-01-27] MEDS: *HR* Amiodarone 200 MG TABLET PO SCH (11:10)
[2019-01-27] MEDS ORDERED: Magic Mouthwash 10 ML UD Cup PO ONE (15:42)
[2019-01-27] MEDS ORDERED: Nystatin SUSP 5 ML UD.LIQ PO ONE (17:30)
== END 2019-01-27 18:00 ==
LOC: INPPIK 16:00
PROVIDERS: ADMIT Internal Medicine; ATTEND Internal Medicine